=== PATIENT | female | born 1945 | race Caucasian/White ===

== ENCOUNTER 2018-01-06 20:38 | Observation (INO) ==
[2018-01-06] MEDS ORDERED: 0.9 % Sodium Chloride 1,000 ML IVC ONE (21:10)
[2018-01-06] MEDS ORDERED: Ondansetron ODT 4 MG TAB.RAPDIS SL ONE (21:18)
[2018-01-06] MEDS ORDERED: Ondansetron 4 MG/2 ML VIAL IVP ONE (21:18)
--- NOTE | 2018-01-06 21:20 | Emergency Department Note ---
Disposition Clinical Impression: Colitis without complication Leukocytosis Qualifiers: Leukocytosis type: unspecified Qualified Code(s): D72.829 - Elevated white blood cell count, unspecified Disposition: Admitted As Inpatient Condition: Undetermined Time of Disposition: 02:00 (Dr Mo accepted the patient) Nausea/Vomiting/Diarrhea HPI - General Chief complaint: ED Nausea/Vomiting/Diarrhea Stated complaint: Nausea/vomiting/diarrhea Source: patient Limitations: no limitations - History of Present Illness HPI Narrative: Patient is a pleasant 72-year-old female with past medical history significant for HTN, GERD, Dyslipidemia and COPD who is presenting to [facility] with a chief complaint off nausea, dry heaves, abdominal pain and bloody stool. His symptoms started 2 days ago and she is supposed to follow up with frame table operator regarding her rectal bleeding. He stated that she had colonoscopy a few years ago and they found polyps. Patient denies any sick contacts and denies any recent travel. Patient's abdominal pain is basically discomfort and related to the dry heaves and is mainly in the epigastric region patient denies recent ingestion of alcohol, and NSAIDS or any other diet. Patient denies any fever or chills. Pt also denies any eye pain or visual disturbances. There is no sore throat or facial or nasal congestion. There is no chest pain or racing heart. No shortness of breath or cough. No dysuria or flank pain. There is no muskulo-skeletal pain, arthralgia or back pain. Patient also denies rash or pruritus. There is no neurological manifestations, no headache, no vertigo or weakness. The patient also denies any depression, hallucinations and there are no homicidal or suicidal ideations. There is no polyuria or polydipsia. There is no easy bruising or bleeding. Review of other systems is otherwise negative except above. Pt Subjective Complaint: vomiting, diarrhea, abdominal pain Onset (ago): day(s) Description of emesis: food contents Description of Diarrhea: water, blood-streaked Associated Abdominal Pain: Yes If pain, Location of pain: diffuse, epigastric Radiation: other Severity: moderate - Related Data Home Medications Medication Instructions Recorded Confirmed Aspirin [Adult Low Dose Aspirin EC] 81 mg PO DAILY 10/09/15 01/07/18 Gabapentin [Gralise] 600 mg PO HS 10/09/15 01/07/18 Lisinopril [Zestril] 10 mg PO DAILY 10/09/15 01/07/18 Lovastatin [Altoprev] 40 mg PO HS 10/09/15 01/07/18 Montelukast [Singulair] 10 mg PO DAILY 10/09/15 01/07/18 Tizanidine HCl [Zanaflex] 4 mg PO BID PRN 10/09/15 01/07/18 Albuterol Neb [Proventil Neb] 2.5 mg IH TID PRN 12/04/15 01/07/18 Fluticasone Propionate Nasal 100 mcg NS DAILY 12/04/15 01/07/18 [Flonase] Ipratropium Neb [Atrovent Neb] 0.5 mg IH BID PRN 12/04/15 11/25/17 Tramadol HCl 50 mg PO BID PRN 12/04/15 01/07/18 Roflumilast [Daliresp] 500 mcg PO DAILY 06/10/16 11/25/17 Olopatadine HCl [Pataday] 1 drop BOTH EYES DAILY PRN 06/28/17 11/25/17 Omeprazole [PriLOSEC] 40 mg PO DAILY 06/28/17 01/07/18 Ranolazine [Ranexa] 500 mg PO BID 11/24/17 11/25/17 Albuterol Sulfate [Ventolin Hfa] 2 puff IH Q6H PRN 11/25/17 01/07/18 Umeclidinium Brm/Vilanterol Tr 1 puff IH DAILY 11/25/17 11/25/17 [Anoro Ellipta 62.5-25 Mcg INH] Isosorbide MONOnitrate (24 HR) 30 mg PO DAILY 01/07/18 01/07/18 [Imdur] Previous Rx's Medication Instructions Recorded Cefdinir [Omnicef] 300 mg PO BID #8 capsule 11/30/17 Lactobacillus [Culturelle] 2 each PO DAILY #10 cap.sprink 11/30/17 Allergies Allergy/AdvReac Type Severity Reaction Status Date / Time Cyclobenzaprine Allergy Hives Verified 11/06/17 14:11 [From Flexeril] lorazepam [From Ativan] Allergy Hives Verified 11/06/17 14:11 levofloxacin [From Levaquin] AdvReac Itching Verified 11/06/17 14:11 All systems ED: reviewed and negative except as stated. Review of Systems: As Per HPI Constitutional: Denies: fever, chills Eyes: Denies: eye pain, eye discharge ENT ED: Denies: ear pain, throat pain Cardiovascular: Denies: chest pain Respiratory: Denies: cough, dyspnea Gastrointestinal: Reports: abdominal pain, nausea, diarrhea Past Medical History - Past Medical History Medical history: Reports: COPD, GERD, hyperlipidemia, hypertension, myocardial infarction Surgical history: Reports: cataract, hysterectomy, orthopedic, other, other Psychiatric history: Reports: no psych history - Social History Smoking Status: Current every day smoker Smokeless Tobacco Status: No Alcohol use: Reports: none Drug use: Reports: none Physical Exam - General Limitations: no limitations General appearance: alert - Head Head exam: atraumatic, normocephalic, normal inspection - Eye Eye exam: Present: normal appearance, PERRL, EOMI - Expanded Eye Exam Pupils: Left: reactive - ENT ENT exam: normal exam, normal oropharynx, mucous membranes dry - Expanded ENT Exam External ear exam: Present: normal external inspection Mouth exam: Present: normal external inspection Teeth exam: Present: normal inspection Throat exam: Present: normal inspection - Neck Neck exam: Present: normal inspection, full ROM, trachea midline - Chest Chest inspection: Present: normal inspection, symmetric chest wall rise - Respiratory Respiratory exam: Present: normal lung sounds bilaterally - Cardiovascular Cardiovascular exam: Present: regular rate, normal rhythm, normal heart sounds - Abdominal Exam Abdominal exam: Present: soft, Non-Tender, tenderness. Absent: distention, guarding, rebound, rigidity - Extremities Exam Extremities exam: Present: normal inspection, full ROM. Absent: tenderness, pedal edema - Expanded Upper Extremity Exam Shoulder exam: Present: normal inspection, full ROM Arm exam: Present: normal inspection, full ROM Elbow exam: Present: normal inspection, full ROM Forearm/Wrist exam: Present: normal inspection, full ROM Hand exam: Present: normal inspection, full ROM Vascular exam: Normal: capillary refill, radial pulse - Expanded Lower Extremity Exam Hip/Pelvis exam: Present: normal inspection, full ROM Upper leg exam: Present: normal inspection, full ROM Knee exam: Present: normal inspection, full ROM Lower leg exam: Present: normal inspection, full ROM Ankle exam: Present: normal inspection, full ROM Foot/toe exam: Present: normal inspection, full ROM Neurovascular/Tendon exam: Absent: motor deficit, sensory deficit, tendon deficit - Back Exam Back exam: Present: normal inspection, full ROM. Absent: tenderness - Neurological Exam Neurological exam: Present: alert, oriented X3 - Expanded Neurological Exam Patient oriented to: Present: person, place, time Coma Scale Eye Opening: Spontaneous Coma Scale Motor Response: Obeys Commands Coma Scale Verbal Response: Oriented Coma Scale Total: 15 - Psychiatric Psychiatric exam: Present: normal affect, normal mood - Skin Skin exam: Present: warm, dry, intact, normal color Course Course Narrative: Stat IV fluids Stat Cipro and Flagyl Zofran has given patient was challenged Vital Signs Temperature 98.3 F 01/06/18 20:40 Pulse Rate 80 01/06/18 20:40 Respiratory Rate 17 01/06/18 20:40 Blood Pressure 137/73 01/06/18 20:40 O2 Sat by Pulse Oximetry 94 01/06/18 20:40 Temperature 98.3 F 01/06/18 20:40 Pulse Rate 72 01/07/18 02:00 Respiratory Rate 18 01/07/18 02:00 Blood Pressure 160/71 01/07/18 02:00 O2 Sat by Pulse Oximetry 96 01/07/18 02:00 Oxygen Delivery Oxygen Delivery Room Air Nausea/Vomiting/Diarrhea - Differential Diagnosis Likely: traveler's diarrhea, food poisoning, gastroenteritis, clostridium difficile infection, drug-induced nausea and vomitting, dehydration - Medical Records Medical records reviewed: Yes I reviewed the patient's medical records. - Lab Data Lab results reviewed: Yes I reviewed the patient's lab results. Result diagrams: 01/06/18 22:19 01/06/18 22:19 Lab Results 01/06/18 01/06/18 01/06/18 Range/Units 22:19 22:19 22:21 WBC 18.5 H (4.3-11.1) K/mcL RBC 4.61 (3.82-4.97) M/mcL Hgb 13.6 (11.5-15.4) g/dL Hct 41.8 (35.3-44.9) % MCV 90.7 (83.0-100.0) fL MCH 29.5 (28.0-33.3) pg MCHC 32.5 (31.6-35.5) g/dL RDW 16.9 H (11.5-14.5) % Plt Count 226 (140-400) K/mcL MPV 11.6 (9.4-12.4) fL Immature Gran % 0.4 (0-4) % Seg Neutrophils % 82.5 % Lymphocytes % 11.1 % Monocytes % 5.5 % Eosinophils % 0.2 % Basophils % 0.3 % Neutrophils # 15.3 H (1.6-8.9) K/mcL Lymphocytes # 2.1 (0.6-4.6) K/mcL Monocytes # 1.0 (0.0-1.3) K/mcL Eosinophils # 0.0 (0.0-0.6) K/mcL Basophils # 0.1 (0.0-0.2) K/mcL Sodium 140 (136-145) mEq/L Potassium 3.5 (3.5-5.1) mEq/L Chloride 106 (98-107) mEq/L Carbon Dioxide 26 (23-29) mEq/L BUN 8 (8-23) mg/dL Creatinine 0.73 (0.60-1.20) mg/dL Est GFR ( Amer) > 60 (> 60) Est GFR (Non-Af Amer) > 60 (> 60) BUN/Creatinine Ratio 11 (6-26) Glucose 117 H (70-105) mg/dL Calculated Osmolality 289 (280-300) Calcium 8.5 L (8.6-10.3) mg/dL Total Bilirubin 0.4 (0.3-1.0) mg/dL AST 11 L (13-39) Units/L ALT 7 (7-52) Units/L Alkaline Phosphatase 72 (34-104) Units/L Serum Total Protein 6.3 L (6.4-8.9) g/dL Albumin 3.5 (3.5-5.7) g/dL Globulin 2.8 (2.4-3.5) g/dL Albumin/Globulin Ratio 1.3 (1.1-2.2) Lipase 6 L (11-82) Units/L Urine Color Yellow (Yellow) Urine Clarity Clear (Clear) Urine pH 5.5 (5.0-8.0) pH Units Ur Specific [place] 1.020 (1.010-1.025) Urine Protein Negative (Neg-Trace) mg/dL Urine Glucose (UA) Normal (Normal) mg/dL Urine Ketones 15 H (Negative) mg/dL Urine Blood Small H (Negative) Urine Nitrite Negative (Negative) Urine Bilirubin Negative (Negative) Urine Urobilinogen Normal (Normal) mg/dL Ur Leukocyte Esterase Negative (Negative) Urine Microscopic RBC 3-5 H (0-3) per hpf Urine Microscopic WBC 0-3 (0-3) per hpf Ur Squamous Epith Cells Few (None-Few) per lpf Urine Bacteria Few (None-Few) per hpf Urine Mucus Few (Few) Ur Culture Indicated? NO (NO) - Radiology Data Radiology results reviewed: Yes I reviewed the patient's radiology results.
[2018-01-06] MEDS ORDERED: *HR* Promethazine 25 MG/ML VIAL IVP ONE (21:59)
[2018-01-06 22:25] LABS: Bilirubin,Urine Negative (Negative); Blood,Urine Small (Negative); Clarity,Urine Clear (Clear); Color,Urine Yellow (Yellow); Glucose,Urine (UA) Normal (Normal); Ketones,Urine 15 mg/dL (Negative); Leukocyte Esterase,Urine Negative (Negative); Nitrite,Urine Negative (Negative); PH,Urine 5.5 pH Units (5.0-8.0); Protein,Urine Negative (Neg-Trace); Urobilinogen,Urine Normal (Normal)
[2018-01-06 22:26] LABS: Basophils # 0.1 K/mcL (0.0-0.2); Basophils % 0.3 %; Eosinophils % 0.2 %; Hematocrit 41.8 % (35.3-44.9); Hemoglobin 13.6 g/dL (11.5-15.4); Immature Granulocytes % 0.4 % (0-4); Lymphocytes # 2.1 K/mcL (0.6-4.6); Lymphocytes % 11.1 %; Mean Corpuscular HGB Conc 32.5 g/dL (31.6-35.5); Mean Corpuscular Hemoglobin 29.5 pg (28.0-33.3); Mean Corpuscular Volume 90.7 fL (83.0-100.0); Mean Platelet Volume 11.6 fL (9.4-12.4); Monocytes % 5.5 %; Neutrophils # 15.3 K/mcL (1.6-8.9); Platelet Count 226 K/mcL (140-400); Red Blood Count 4.61 M/mcL (3.82-4.97); Red Cell Distribution Width 16.9 % (11.5-14.5); Segmented Neutrophils % 82.5 %
[2018-01-06 22:41] LABS: Alanine Aminotransferase 7 Units/L (7-52); Albumin 3.5 g/dL (3.5-5.7); Albumin/Globulin Ratio 1.3 (1.1-2.2); Alkaline Phosphatase 72 Units/L (34-104); Aspartate Amino Transferase 11 Units/L (13-39); BUN/Creatinine Ratio 11 (6-26); Bilirubin,Total 0.4 mg/dL (0.3-1.0); Blood Urea Nitrogen 8 mg/dL (8-23); Calcium 8.5 mg/dL (8.6-10.3); Carbon Dioxide 26 mEq/L (23-29); Chloride 106 mEq/L (98-107); Globulin 2.8 g/dL (2.4-3.5); Glucose 117 mg/dL (70-105); Lipase 6 Units/L (11-82); Osmolality,Calculated 289 (280-300); Potassium 3.5 mEq/L (3.5-5.1); Sodium 140 mEq/L (136-145); Total Protein 6.3 g/dL (6.4-8.9); eGFR For African Americans > 60 (> 60); eGFR For Non-African Americans > 60 (> 60)
[2018-01-06 22:50] LABS: Mucus,Urine Few (Few); Squamous Epithelial Cell,Urine Few per lpf (None-Few); WBC,Urine 0-3 per hpf (0-3)
[2018-01-06 22:51] LABS: Bacteria,Urine Few per hpf (None-Few)
[2018-01-06] MEDS ORDERED: Isovue-370 500 ML INFUS..BTL IV ONE (23:45)
[2018-01-07] MEDS ORDERED: MetroNIDAZOLE 500 MG/100 ML 500 MG/100 ML BAG IVPB ONE ×4 (01:48→03:24)
[2018-01-07] MEDS ORDERED: Naloxone 0.4 MG/ML INJ IVP PRN (03:24)
[2018-01-07] MEDS ORDERED: *HR* Promethazine 25 MG/ML VIAL IVP ONE (03:24)
[2018-01-07] MEDS ORDERED: Albuterol 2.5 MG/3 ML NEBULIZER IH PRN (03:24)
[2018-01-07] MEDS ORDERED: traMADol 50 MG TABLET PO PRN (03:24)
[2018-01-07] MEDS ORDERED: Isovue-370 500 ML INFUS..BTL IV ONE (03:24)
[2018-01-07] MEDS ORDERED: 0.9 % Sodium Chloride 1,000 ML IVC SCH (03:24)
[2018-01-07 08:01] LABS: Basophils # 0.1 K/mcL (0.0-0.2); Basophils % 0.4 %; Eosinophils # 0.1 K/mcL (0.0-0.6); Eosinophils % 0.4 %; Hematocrit 36.8 % (35.3-44.9); Hemoglobin 11.8 g/dL (11.5-15.4); Immature Granulocytes % 0.3 % (0-4); Lymphocytes # 2.8 K/mcL (0.6-4.6); Lymphocytes % 23.7 %; Mean Corpuscular HGB Conc 32.1 g/dL (31.6-35.5); Mean Corpuscular Hemoglobin 28.9 pg (28.0-33.3); Mean Corpuscular Volume 90.2 fL (83.0-100.0); Mean Platelet Volume 12.1 fL (9.4-12.4); Monocytes # 0.8 K/mcL (0.0-1.3); Monocytes % 6.8 %; Neutrophils # 8.1 K/mcL (1.6-8.9); Platelet Count 203 K/mcL (140-400); Red Blood Count 4.08 M/mcL (3.82-4.97); Red Cell Distribution Width 16.8 % (11.5-14.5); Segmented Neutrophils % 68.4 %
[2018-01-07 08:18] LABS: BUN/Creatinine Ratio 9 (6-26); Blood Urea Nitrogen 6 mg/dL (8-23); Calcium 8.2 mg/dL (8.6-10.3); Carbon Dioxide 24 mEq/L (23-29); Chloride 111 mEq/L (98-107); Glucose 81 mg/dL (70-105); Osmolality,Calculated 293 (280-300); Potassium 3.2 mEq/L (3.5-5.1); Sodium 143 mEq/L (136-145); eGFR For African Americans > 60 (> 60); eGFR For Non-African Americans > 60 (> 60)
[2018-01-07] MEDS ORDERED: Fluticasone Propionate Nasal 50 MCG/SPRAY BOTTLE NS SCH (09:00)
[2018-01-07] MEDS: Lactobacillus 1 EACH CAP.SPRINK PO SCH (09:36)
[2018-01-07] MEDS: Isosorbide MONOnitrate (24 HR) 60 MG TAB.ER.24H PO SCH (09:36)
[2018-01-07] MEDS: Ranolazine 500 MG TAB.ER.12H PO SCH ×2 (09:36→20:59)
[2018-01-07] MEDS: Aspirin Enteric Coated 81 MG Tablet PO SCH (09:36)
[2018-01-07] MEDS ORDERED: Ipratropium Neb 0.5 MG NEBULIZER IH PRN (10:00)
--- NOTE | 2018-01-07 14:47 | Internal Med History&Physical ---
Date of Encounter: 01/07/18 Time of Encounter: 14:10 Assessment and Plan (1) Colitis without complication Current visit: Yes Status: Acute Etiology not certain. She was hospitalized at [facility] approximately 6 weeks ago with pneumonia. She had diarrhea then with C. difficile test negative. Will order stool studies. (2) Hypokalemia Current visit: Yes Status: Acute Potassium decreased today to 3.2. We will give supplemental potassium and monitor labs. (3) Weight loss Current visit: Yes Status: Acute Unintentional 15 pound weight loss. Will check TSH. Chest CT 11/07/2017 showed no worrisome pathology suggestive of malignancy. (4) Hypertension Current visit: No Status: Chronic Continue lisinopril Qualifiers: Hypertension type: essential hypertension Qualified Code(s): I10 - Essential (primary) hypertension Internal Medicine - H&P: HPI Chief complaint: Vomiting, abdominal pain Admitted From: Emergency Dept Plans for Post Hospital Care: Home History of present illness: Ms. Rios is a 72 year old female who came to emergency room stating she had 3 episodes of vomiting beginning January 05. There was no hematemesis. She reports low-grade fever of approximately 100. There was no visible blood in her stool. When she did not improve she came to emergency room for evaluation. Abdominal /pelvis CT showed inflammation of colon from cecum to proximal descending colon. She was admitted to [facility] floor for ongoing care needs. She reports history of colon polyps requiring polypectomy with most recent colonoscopy December 2015. She denies disorders of her liver or exocrine pancreas. She states she had a "stomach ulcer" many years ago. She uses rare OTC ibuprofen and takes aspirin 81 mg daily. She denies other OTC NSAID use. Past Med Surg Social Fam HX - Past Medical History Medical history: COPD, GERD, hyperlipidemia, hypertension, myocardial infarction , other Additional medical history: Chronic diarrhea Psychiatric history: no psych history - Past Surgical History Surgical History: cataract, hysterectomy, orthopedic, other, other Additional surgical history: Carpal Tunnel and Back surgery - Social History Smoking Status: Current every day smoker Packs per day: 1/2 Smokeless Tobacco Status: No Alcohol use: none Drug use: none Internal Medicine - H&P: Meds Aspirin [Adult Low Dose Aspirin EC] 81 mg PO DAILY 10/09/15 [History] Gabapentin [Gralise] 600 mg PO HS 10/09/15 [History] Lisinopril [Zestril] 10 mg PO DAILY 10/09/15 [History] Lovastatin [Altoprev] 40 mg PO HS 10/09/15 [History] Montelukast [Singulair] 10 mg PO DAILY 10/09/15 [History] Tizanidine HCl [Zanaflex] 4 mg PO BID PRN 10/09/15 [History] Albuterol Neb [Proventil Neb] 2.5 mg IH TID PRN 12/04/15 [History] Fluticasone Propionate Nasal [Flonase] 100 mcg NS DAILY 12/04/15 [History] Tramadol HCl 50 mg PO BID PRN 12/04/15 [History] Roflumilast [Daliresp] 500 mcg PO DAILY 06/10/16 [History] Olopatadine HCl [Pataday] 1 drop BOTH EYES DAILY PRN 06/28/17 [History] Omeprazole [PriLOSEC] 40 mg PO DAILY 06/28/17 [History] Ranolazine [Ranexa] 500 mg PO BID 11/24/17 [History] Albuterol Sulfate [Ventolin Hfa] 2 puff IH Q6H PRN 11/25/17 [History] Umeclidinium Brm/Vilanterol Tr [Anoro Ellipta 62.5-25 Mcg INH] 1 puff IH DAILY 11/25/17 [History] Isosorbide MONOnitrate (24 HR) [Imdur] 30 mg PO DAILY 01/07/18 [History] 3 Allergy/AdvReac Type Severity Reaction Status Date / Time Cyclobenzaprine Allergy Hives Verified 11/06/17 14:11 [From Flexeril] lorazepam [From Ativan] Allergy Hives Verified 11/06/17 14:11 levofloxacin [From Levaquin] AdvReac Itching Verified 11/06/17 14:11 All Systems PM: A 10-system review of systems was performed and is negative for pertinent findings except as documented above in the HPI. Review of systems: Gen.: Her weight has decreased from 75.251 kg on 10/11/2015 to 68.039 kg on admission now. This was unintentional. Cardiovascular: She has history of hypertension and reports an TN in 2014. She had a heart catheter at [facility] 2014 without intervention. She wore a defibrillator vest for approximately 4 months but does not know details. She denies heart failure DVT or pulmonary embolus. Respiratory: She has smoked since age 16 up to one pack per day. She reports PFTs at [facility] 2014. She was told she has COPD and has oxygen at home which she uses only when she feels symptomatic. GI: As per history of present illness : She has had UTIs in the past but denies other kidney or bladder disorders. Neurologic: She denies large distribution strokes or seizures. Endocrine: She has been told she has borderline diabetes. She has a thyroid nodule. She has hyperlipidemia. Hematology/oncology: She denies blood disorders cancers or anemia. Psychiatric: She denies anxiety depression or other mental health issues Musk skeletal: She has DJD but no known gout or osteoporosis. She has had right carpal tunnel surgery and 2 cysts moved from her right wrist. - Constitutional Vitals: Temp Pulse Resp BP Pulse Ox 98.5 F 67 16 123/59 93 01/07/18 11:00 01/07/18 11:00 01/07/18 11:00 01/07/18 11:01/07/18 11:00 Exam: Gen.: She is a well-developed well-nourished female sitting in chair at bedside who appears in no acute distress HEENT: Head is atraumatic and normocephalic. Eyes: EOMI. There is no scleral icterus. Mouth: Mucosa is moist. Neck: Supple and nontender. There is no thyromegaly or adenopathy noted Heart: Regular without murmurs gallops or ectopics Lungs: No wheezes or crackles are heard Abdomen: Bowel sounds are present. The abdomen is nontender to palpation. No masses or guarding are noted. Exam is limited somewhat because she is in a seated position. Extremities: There is no cyanosis edema or clubbing noted. Dorsalis pedis and posttibial pulses are trace palpable bilaterally. Neurologic: Mental status: She is talkative and a good historian. Cranial nerves: Smile is symmetric. Forehead wrinkles bilaterally. Tongue protrudes midline. EOMI. Motor: There is no pronator drift. Cerebellar: Finger to nose is intact bilaterally. Skin: Warm and dry Internal Med - H&P Results - Labs CBC & Chem 7: 01/07/18 07:38 01/07/18 07:38 Labs: Short CBC 01/07/18 Range/Units 07:38 WBC 11.9 H (4.3-11.1) K/mcL Hgb 11.8 D (11.5-15.4) g/dL Hct 36.8 (35.3-44.9) % Plt Count 203 (140-400) K/mcL Neutrophils # 8.1 (1.6-8.9) K/mcL BMP 01/07/18 07:38 Sodium 143 Potassium 3.2 L Chloride 111 H Carbon Dioxide 24 BUN 6 L Creatinine 0.64 Glucose 81 Calcium 8.2 L
[2018-01-07] MEDS ORDERED: metroNIDAZOLE 500 MG TABLET PO SCH (15:15)
[2018-01-07] MEDS: metroNIDAZOLE 500 MG TABLET PO SCH ×2 (16:48→22:04)
[2018-01-07] MEDS ORDERED: Gabapentin 300 MG CAPSULE PO SCH (21:00)
[2018-01-08] MEDS: metroNIDAZOLE 500 MG TABLET PO SCH (05:19)
[2018-01-08 06:28] LABS: Basophils % 0.5 %; Eosinophils # 0.2 K/mcL (0.0-0.6); Eosinophils % 2.1 %; Hematocrit 35.2 % (35.3-44.9); Hemoglobin 11.2 g/dL (11.5-15.4); Immature Granulocytes % 0.4 % (0-4); Lymphocytes # 2.3 K/mcL (0.6-4.6); Mean Corpuscular HGB Conc 31.8 g/dL (31.6-35.5); Mean Corpuscular Hemoglobin 28.9 pg (28.0-33.3); Mean Corpuscular Volume 90.7 fL (83.0-100.0); Mean Platelet Volume 11.6 fL (9.4-12.4); Monocytes # 0.7 K/mcL (0.0-1.3); Platelet Count 176 K/mcL (140-400); Red Blood Count 3.88 M/mcL (3.82-4.97); Red Cell Distribution Width 16.3 % (11.5-14.5)
[2018-01-08 06:54] LABS: BUN/Creatinine Ratio 15 (6-26); Blood Urea Nitrogen 9 mg/dL (8-23); Carbon Dioxide 27 mEq/L (23-29); Chloride 112 mEq/L (98-107); Glucose 84 mg/dL (70-105); Magnesium 1.9 mg/dL (1.6-2.6); Osmolality,Calculated 294 (280-300); Potassium 3.4 mEq/L (3.5-5.1); Sodium 143 mEq/L (136-145); eGFR For African Americans > 60 (> 60); eGFR For Non-African Americans > 60 (> 60)
[2018-01-08 07:03] LABS: Thyroid Stimulating Hormone 1.606 mcIU/mL (0.340-5.600)
[2018-01-08 07:43] VITALS: BP 128/61
[2018-01-08] MEDS: Lactobacillus 1 EACH CAP.SPRINK PO SCH (08:24)
[2018-01-08] MEDS: Isosorbide MONOnitrate (24 HR) 60 MG TAB.ER.24H PO SCH (08:25)
[2018-01-08] MEDS: Ranolazine 500 MG TAB.ER.12H PO SCH (08:25)
[2018-01-08] MEDS: Aspirin Enteric Coated 81 MG Tablet PO SCH (08:25)
--- NOTE | 2018-01-08 10:15 | Discharge Summary ---
Orders not resulted at time of discharge: Pending orders 01/07/18 02:25 Culture,Blood [BC] Stat 01/07/18 02:30 Culture,Blood,Additional [BC] Stat 01/07/18 15:00 GI Panel,Stool [MOLMIC] Routine Date of Encounter: 01/08/18 Time of Encounter: 10:05 - Discharge Diagnosis (1) Colitis without complication Priority: Primary Status: Acute (2) Hypokalemia Priority: Secondary Status: Acute (3) Weight loss Priority: Secondary Status: Acute (4) Hypertension Priority: Secondary Status: Chronic Qualifiers: Hypertension type: essential hypertension Qualified Code(s): I10 - Essential (primary) hypertension Hospital course: Ms. Rios is a 72 year old female who came to emergency room stating she had 3 episodes of vomiting beginning January 05. There was no hematemesis. She reports low-grade fever of approximately 100. There was no visible blood in her stool. When she did not improve she came to emergency room for evaluation. Abdominal /pelvis CT showed inflammation of colon from cecum to proximal descending colon. She was admitted to [facility] for ongoing care needs. Initial orders were written by the emergency room physician. I saw her on January 07 and performed the history and physical. She was started on Cipro and Flagyl with lactobacillus. WBC normalized to 7.3 with resolution of left shift by day of discharge. A GI stool panel was ordered with results pending at time of discharge. Supplemental potassium was given and will be continued for 7 days after discharge. Her PCP can monitor this. TSH returned normal at 1.606. She remained afebrile during her hospital stay. Her oral intake was adequate. She reported stools were still loose on day of discharge but I felt she was stable for discharge home. She will follow with her PCP Dr. Coats within 1 week. She will continue with Flagyl and lactobacillus for 5 additional days at discharge. Her PCP can follow up on the pending GI stool panel. I encouraged her to become a nonsmoker. - Time Spent with Patient Total time spent providing and/or coordinating discharge services: - Discharge Medications Prescriptions: Lactobacillus [Culturelle] 1 each PO BID #10 cap.sprink metroNIDAZOLE [Flagyl] 500 mg PO TID #15 tablet Potassium Chloride 10 meq PO BIDWM #14 tab.er.prt Home Medications: Aspirin [Adult Low Dose Aspirin EC] 81 mg PO DAILY 04/07/16 [History] Gabapentin [Gralise] 600 mg PO HS 10/09/15 [History] Lisinopril [Zestril] 10 mg PO DAILY 10/09/15 [History] Lovastatin [Altoprev] 40 mg PO HS 10/09/15 [History] Montelukast [Singulair] 10 mg PO DAILY 10/09/15 [History] Tizanidine HCl [Zanaflex] 4 mg PO BID PRN 10/09/15 [History] Albuterol Neb [Proventil Neb] 2.5 mg IH TID PRN 12/04/15 [History] Fluticasone Propionate Nasal [Flonase] 100 mcg NS DAILY 12/04/15 [History] Tramadol HCl 50 mg PO BID PRN 12/04/15 [History] Roflumilast [Daliresp] 500 mcg PO DAILY 06/10/16 [History] Olopatadine HCl [Pataday] 1 drop BOTH EYES DAILY PRN 06/28/17 [History] Ranolazine [Ranexa] 500 mg PO BID 11/24/17 [History] Albuterol Sulfate [Ventolin Hfa] 2 puff IH Q6H PRN 11/25/17 [History] Umeclidinium Brm/Vilanterol Tr [Anoro Ellipta 62.5-25 Mcg INH] 1 puff IH DAILY 11/25/17 [History] Isosorbide MONOnitrate (24 HR) [Imdur] 30 mg PO DAILY 01/07/18 [History] Lactobacillus [Culturelle] 1 each PO BID #10 cap.sprink 01/08/18 [Rx] Potassium Chloride 10 meq PO BIDWM #14 tab.er.prt 01/08/18 [Rx] metroNIDAZOLE [Flagyl] 500 mg PO TID #15 tablet 01/08/18 [Rx] Allergies/Adverse Reactions: 3 Allergy/AdvReac Type Severity Reaction Status Date / Time Cyclobenzaprine Allergy Hives Verified 11/06/17 14:11 [From Flexeril] lorazepam [From Ativan] Allergy Hives Verified 11/06/17 14:11 levofloxacin [From Levaquin] AdvReac Itching Verified 11/06/17 14:11 Date of admission: 01/07/18 02:24 Primary care physician: Josh Coats DO - Constitutional Vitals: Temp Pulse Resp BP Pulse Ox 98.2 F 63 18 128/61 94 01/08/18 07:25 01/08/18 07:25 01/08/18 07:25 01/08/18 07:25 01/08/18 07:25 - Patient Status Disposition: Home, Self-Care Condition: Undetermined Overall status at discharge: patient is progressing back to baseline - Discharge Instructions Follow Up With: Josh Coats DO [Primary Care Provider] - 1 week - Diet and Activity Activity: resume usual activities as tolerated, wear oxygen at night Diet: advance to your usual diet
== END 2018-01-08 11:22 | disposition home or self-care (01) ==
LOC: EMEROOPIK 20:38 → INPPIK 20:38
PROVIDERS: ADMIT Internal Medicine; ATTEND Internal Medicine

== ENCOUNTER 2019-07-17 07:21 | Observation (INO) ==
[2019-07-17] MEDS ORDERED: cefTRIAXone 2,000 MG in 0.9 % Sodium Chloride Mini Bag 100 ML IVPB ONE (07:26)
[2019-07-17] MEDS ORDERED: 0.9 % Sodium Chloride 1,000 ML IVC ONE ×2 (07:26→18:50)
[2019-07-17 07:50] LABS: Bilirubin,Urine Negative (Negative); Blood,Urine Small (Negative); Clarity,Urine Turbid (Clear); Color,Urine Yellow (Yellow); Glucose,Urine (UA) Normal (Normal); Ketones,Urine Negative (Negative); Leukocyte Esterase,Urine Large (Negative); Nitrite,Urine Positive (Negative); Protein,Urine Negative (Neg-Trace); Specific Gravity,Urine 1.015 (1.010-1.025); Urobilinogen,Urine Normal (Normal)
[2019-07-17 07:58] LABS: Basophils # 0.1 K/mcL (0.0-0.2); Basophils % 0.5 %; Eosinophils # 0.1 K/mcL (0.0-0.6); Eosinophils % 0.9 %; Hematocrit 41.1 % (35.3-44.9); Hemoglobin 12.8 g/dL (11.5-15.4); Immature Granulocytes % 0.4 % (0-4); Lymphocytes % 12.9 %; Mean Corpuscular HGB Conc 31.1 g/dL (31.6-35.5); Mean Corpuscular Hemoglobin 28.1 pg (28.0-33.3); Mean Corpuscular Volume 90.1 fL (83.0-100.0); Mean Platelet Volume 11.6 fL (9.4-12.4); Monocytes # 0.8 K/mcL (0.0-1.3); Monocytes % 5.1 %; Neutrophils # 12.3 K/mcL (1.6-8.9); Platelet Count 286 K/mcL (140-400); Red Blood Count 4.56 M/mcL (3.82-4.97); Red Cell Distribution Width 15.6 % (11.5-14.5); Segmented Neutrophils % 80.2 %; White Blood Count 15.3 K/mcL (4.3-11.1)
[2019-07-17 08:01] LABS: Bacteria,Urine Many per hpf (None-Few); Squamous Epithelial Cell,Urine Few per lpf (None-Few); WBC,Urine TNTC per hpf (0-3)
[2019-07-17 08:02] LABS: Mucus,Urine Moderate per lpf (Few)
[2019-07-17 08:11] LABS: BUN/Creatinine Ratio 15 (6-26); Blood Urea Nitrogen 12 mg/dL (8-23); Calcium 8.2 mg/dL (8.6-10.3); Carbon Dioxide 28 mEq/L (23-29); Chloride 106 mEq/L (98-107); Glucose 111 mg/dL (70-105); Osmolality,Calculated 292 (280-300); Potassium 3.8 mEq/L (3.5-5.1); Sodium 141 mEq/L (136-145); eGFR For African Americans > 60 (> 60); eGFR For Non-African Americans > 60 (> 60)
[2019-07-17] MEDS ORDERED: Naloxone 0.4 MG/ML INJ IVP PRN (09:10)
[2019-07-17] MEDS ORDERED: Ondansetron 4 MG/2 ML VIAL IVP PRN (09:10)
[2019-07-17] MEDS ORDERED: Ringers Solution, Lactated 1,000 ML IVC SCH (09:15)
[2019-07-17] MEDS ORDERED: *HR* OxyCODONE/APAP 5/325 TABLET PO ONE (09:20)
[2019-07-17] MEDS ORDERED: Olopatadine Hcl [Pataday] OP PRN (15:44)
[2019-07-17] MEDS ORDERED: Furosemide 20 MG TABLET PO PRN (15:44)
[2019-07-17] MEDS ORDERED: tiZANidine 4 MG TABLET PO PRN (15:44)
[2019-07-17] MEDS ORDERED: NON-FORMULARY MEDICATION 1 EACH EACH (Ibandronate Sodium [Boniva] 150 MG) PO SCH (15:45)
[2019-07-17] MEDS: *HR* OxyCODONE Immed Rel 5 MG TABLET PO PRN (16:45)
[2019-07-17] MEDS: Nicotine 21 MG PATCH.TD24 TD SCH (16:46)
[2019-07-17] MEDS ORDERED: Acetaminophen 325 MG TABLET PO PRN (18:49)
[2019-07-17] MEDS: 0.9 % Sodium Chloride 1,000 ML IVC SCH (19:18)
[2019-07-17] MEDS: Gabapentin 300 MG CAPSULE PO SCH (20:20)
[2019-07-18] MEDS: 0.9 % Sodium Chloride 1,000 ML IVC SCH ×2 (04:48→14:55)
[2019-07-18 05:26] LABS: Hematocrit 38.2 % (35.3-44.9); Hemoglobin 11.9 g/dL (11.5-15.4); Mean Corpuscular HGB Conc 31.2 g/dL (31.6-35.5); Mean Corpuscular Hemoglobin 28.3 pg (28.0-33.3); Mean Platelet Volume 11.4 fL (9.4-12.4); Platelet Count 272 K/mcL (140-400); Red Cell Distribution Width 15.8 % (11.5-14.5); White Blood Count 11.9 K/mcL (4.3-11.1)
[2019-07-18 05:46] LABS: BUN/Creatinine Ratio 15 (6-26); Blood Urea Nitrogen 9 mg/dL (8-23); Calcium 7.8 mg/dL (8.6-10.3); Carbon Dioxide 27 mEq/L (23-29); Chloride 113 mEq/L (98-107); Glucose 92 mg/dL (70-105); Osmolality,Calculated 298 (280-300); Potassium 3.8 mEq/L (3.5-5.1); Sodium 145 mEq/L (136-145); eGFR For African Americans > 60 (> 60); eGFR For Non-African Americans > 60 (> 60)
[2019-07-18] MEDS: cefTRIAXone 2,000 MG in Water for inj. (sterile) 20 ML IVP SCH (08:05)
[2019-07-18] MEDS: Aspirin Enteric Coated 81 MG Tablet PO SCH (08:06)
[2019-07-18] MEDS: Metoprolol XL (24 HR) Succ 25 MG TAB.ER.24H PO SCH (08:06)
[2019-07-18] MEDS: Isosorbide MONOnitrate (24 HR) 30 MG TAB.ER.24H PO SCH (08:06)
[2019-07-18] MEDS: Roflumilast [Daliresp] 500 MCG PO SCH (08:06)
[2019-07-18] MEDS: Cholecalciferol (D-3) 1,000 UNIT (25MCG) TABLET PO SCH (08:06)
[2019-07-18] MEDS: Fluticasone Propionate Nasal 50 MCG/SPRAY BOTTLE NS SCH (08:06)
[2019-07-18] MEDS: Gabapentin 300 MG CAPSULE PO SCH ×3 (08:06→20:17)
[2019-07-18] MEDS: Nicotine 21 MG PATCH.TD24 TD SCH (09:05)
[2019-07-18] MEDS: *HR* OxyCODONE Immed Rel 5 MG TABLET PO PRN (14:59)
[2019-07-19] MEDS: 0.9 % Sodium Chloride 1,000 ML IVC SCH (01:02)
[2019-07-19 06:35] LABS: Hematocrit 37.9 % (35.3-44.9); Hemoglobin 11.4 g/dL (11.5-15.4); Mean Corpuscular HGB Conc 30.1 g/dL (31.6-35.5); Mean Corpuscular Hemoglobin 28.2 pg (28.0-33.3); Mean Corpuscular Volume 93.8 fL (83.0-100.0); Mean Platelet Volume 12.9 fL (9.4-12.4); Platelet Count 156 K/mcL (140-400); Red Blood Count 4.04 M/mcL (3.82-4.97); Red Cell Distribution Width 15.9 % (11.5-14.5); White Blood Count 7.9 K/mcL (4.3-11.1)
[2019-07-19 06:54] LABS: BUN/Creatinine Ratio 20 (6-26); Blood Urea Nitrogen 10 mg/dL (8-23); Calcium 7.8 mg/dL (8.6-10.3); Carbon Dioxide 22 mEq/L (23-29); Chloride 113 mEq/L (98-107); Glucose 89 mg/dL (70-105); Osmolality,Calculated 293 (280-300); Sodium 142 mEq/L (136-145); eGFR For African Americans > 60 (> 60); eGFR For Non-African Americans > 60 (> 60)
[2019-07-19] MEDS: Roflumilast [Daliresp] 500 MCG PO SCH (09:07)
[2019-07-19] MEDS: cefTRIAXone 2,000 MG in Water for inj. (sterile) 20 ML IVP SCH (09:33)
[2019-07-19] MEDS: Metoprolol XL (24 HR) Succ 25 MG TAB.ER.24H PO SCH (09:34)
[2019-07-19] MEDS: Aspirin Enteric Coated 81 MG Tablet PO SCH (09:34)
[2019-07-19] MEDS: Gabapentin 300 MG CAPSULE PO SCH (09:35)
[2019-07-19] MEDS: Isosorbide MONOnitrate (24 HR) 30 MG TAB.ER.24H PO SCH (09:35)
[2019-07-19] MEDS: Nicotine 21 MG PATCH.TD24 TD SCH ×2 (09:35→09:56)
[2019-07-19] MEDS: Cholecalciferol (D-3) 1,000 UNIT (25MCG) TABLET PO SCH (09:35)
[2019-07-19] MEDS: Fluticasone Propionate Nasal 50 MCG/SPRAY BOTTLE NS SCH (09:36)
[2019-07-19 10:39] VITALS: BP 168/85
== END 2019-07-19 11:14 | disposition home or self-care (01) ==
LOC: EMEROOPIK 07:21 → INPPIK 07:21
PROVIDERS: ADMIT Internal Medicine; ATTEND Internal Medicine

== ENCOUNTER 2019-12-28 20:34 | Inpatient (IN) ==
[2019-12-28] MEDS ORDERED: Ipratropium/Albuterol Neb 3 ML IH ONE (21:50)
[2019-12-28] MEDS ORDERED: methylPREDNISolone 125 MG/2 ML VIAL IVP ONE (21:50)
[2019-12-28 22:11] LABS: Basophils # 0.1 K/mcL (0.0-0.2); Basophils % 0.3 %; Eosinophils # 0.7 K/mcL (0.0-0.6); Eosinophils % 3.9 %; Hematocrit 37.7 % (35.3-44.9); Hemoglobin 11.8 g/dL (11.5-15.4); Immature Granulocytes % 0.5 % (0-4); Lymphocytes # 2.3 K/mcL (0.6-4.6); Mean Corpuscular HGB Conc 31.3 g/dL (31.6-35.5); Mean Corpuscular Hemoglobin 27.8 pg (28.0-33.3); Mean Corpuscular Volume 88.7 fL (83.0-100.0); Mean Platelet Volume 11.6 fL (9.4-12.4); Monocytes # 1.2 K/mcL (0.0-1.3); Monocytes % 6.8 %; Neutrophils # 13.4 K/mcL (1.6-8.9); Platelet Count 212 K/mcL (140-400); Red Blood Count 4.25 M/mcL (3.82-4.97); Red Cell Distribution Width 17.8 % (11.5-14.5); Segmented Neutrophils % 75.5 %; White Blood Count 17.7 K/mcL (4.3-11.1)
[2019-12-28 22:28] LABS: BUN/Creatinine Ratio 15 (6-26); Blood Urea Nitrogen 12 mg/dL (8-23); Calcium 8.1 mg/dL (8.6-10.3); Carbon Dioxide 30 mEq/L (23-29); Chloride 105 mEq/L (98-107); Glucose 119 mg/dL (70-105); Osmolality,Calculated 295 (280-300); Potassium 3.9 mEq/L (3.5-5.1); Sodium 142 mEq/L (136-145); Troponin I < 0.03 ng/mL (< 0.04); eGFR For African Americans > 60 (> 60); eGFR For Non-African Americans > 60 (> 60)
[2019-12-29] MEDS ORDERED: cefTRIAXone 1,000 MG in 0.9 % Sodium Chloride Mini Bag 100 ML IVPB ONE (01:54)
[2019-12-29] MEDS ORDERED: Azithromycin 250 MG TABLET PO ONE (01:54)
[2019-12-29] MEDS: Ipratropium/Albuterol Neb 3 ML IH SCH ×4 (07:06→21:48)
[2019-12-29] MEDS ORDERED: Naloxone 0.4 MG/ML INJ IVP PRN (07:26)
[2019-12-29] MEDS: *HR* Heparin 5,000 UNIT/ML VIAL SQ SCH ×3 (08:07→22:12)
[2019-12-29 08:41] LABS: Basophils % 0.3 %; Eosinophils % 0.1 %; Hemoglobin 12.8 g/dL (11.5-15.4); Immature Granulocytes % 0.8 % (0-4); Lymphocytes % 6.8 %; Mean Corpuscular HGB Conc 31.2 g/dL (31.6-35.5); Mean Corpuscular Hemoglobin 27.8 pg (28.0-33.3); Mean Corpuscular Volume 88.9 fL (83.0-100.0); Mean Platelet Volume 11.1 fL (9.4-12.4); Monocytes # 0.1 K/mcL (0.0-1.3); Monocytes % 0.9 %; Neutrophils # 13.6 K/mcL (1.6-8.9); Platelet Count 225 K/mcL (140-400); Red Blood Count 4.61 M/mcL (3.82-4.97); Red Cell Distribution Width 17.8 % (11.5-14.5); Segmented Neutrophils % 91.1 %; White Blood Count 14.9 K/mcL (4.3-11.1)
[2019-12-29 08:58] LABS: Alanine Aminotransferase 18 Units/L (7-52); Albumin 3.4 g/dL (3.5-5.7); Albumin/Globulin Ratio 1.3 (1.1-2.2); Alkaline Phosphatase 68 Units/L (34-104); Aspartate Amino Transferase 11 Units/L (13-39); BUN/Creatinine Ratio 19 (6-26); Bilirubin,Total 0.4 mg/dL (0.3-1.0); Blood Urea Nitrogen 13 mg/dL (8-23); Calcium 8.3 mg/dL (8.6-10.3); Carbon Dioxide 27 mEq/L (23-29); Chloride 106 mEq/L (98-107); Globulin 2.6 g/dL (2.4-3.5); Glucose 194 mg/dL (70-105); Osmolality,Calculated 299 (280-300); Potassium 4.2 mEq/L (3.5-5.1); Sodium 142 mEq/L (136-145); eGFR For African Americans > 60 (> 60); eGFR For Non-African Americans > 60 (> 60)
[2019-12-29] MEDS ORDERED: Nitroglycerin 0.4 MG TAB.SUBL SL PRN (10:02)
[2019-12-29] MEDS ORDERED: Furosemide 20 MG TABLET PO PRN (10:02)
[2019-12-29] MEDS ORDERED: tiZANidine 4 MG TABLET PO PRN (10:02)
[2019-12-29] MEDS ORDERED: NON-FORMULARY MEDICATION 1 EACH EACH (Ibandronate Sodium [Boniva] 150 MG) PO SCH (10:15)
[2019-12-29] MEDS: *HR* OxyCODONE Immed Rel 5 MG TABLET PO PRN (10:25)
[2019-12-29] MEDS: Gabapentin 300 MG CAPSULE PO SCH ×3 (10:25→19:38)
[2019-12-29] MEDS: Isosorbide MONOnitrate (24 HR) 30 MG TAB.ER.24H PO SCH (10:26)
[2019-12-29] MEDS: Aspirin Enteric Coated 81 MG Tablet PO SCH (10:26)
[2019-12-29] MEDS: Metoprolol XL (24 HR) Succ 25 MG TAB.ER.24H PO SCH (10:26)
[2019-12-29] MEDS: Cholecalciferol (D-3) 1,000 UNIT (25MCG) TABLET PO SCH (10:26)
[2019-12-29] MEDS: 0.9 % Sodium Chloride 1,000 ML IVC SCH ×2 (10:27→19:38)
[2019-12-29] MEDS: Fluticasone Propionate Nasal 50 MCG/SPRAY BOTTLE NS SCH (10:27)
[2019-12-30] MEDS: Azithromycin 500 MG in 0.9 % Sodium Chloride 250 ML IVPB SCH (03:25)
[2019-12-30] MEDS: 0.9 % Sodium Chloride 1,000 ML IVC SCH ×2 (03:25→12:32)
[2019-12-30] MEDS: Ipratropium/Albuterol Neb 3 ML IH SCH ×4 (04:00→22:41)
[2019-12-30] MEDS: *HR* Heparin 5,000 UNIT/ML VIAL SQ SCH ×3 (06:11→21:08)
[2019-12-30 07:43] LABS: Basophils % 0.3 %; Eosinophils # 0.6 K/mcL (0.0-0.6); Eosinophils % 4.1 %; Hematocrit 36.2 % (35.3-44.9); Hemoglobin 10.9 g/dL (11.5-15.4); Immature Granulocytes % 0.7 % (0-4); Lymphocytes # 3.3 K/mcL (0.6-4.6); Lymphocytes % 22.5 %; Mean Corpuscular HGB Conc 30.1 g/dL (31.6-35.5); Mean Corpuscular Hemoglobin 27.5 pg (28.0-33.3); Mean Corpuscular Volume 91.2 fL (83.0-100.0); Mean Platelet Volume 11.7 fL (9.4-12.4); Monocytes # 0.8 K/mcL (0.0-1.3); Monocytes % 5.6 %; Neutrophils # 9.9 K/mcL (1.6-8.9); Platelet Count 204 K/mcL (140-400); Red Blood Count 3.97 M/mcL (3.82-4.97); Segmented Neutrophils % 66.8 %; White Blood Count 14.8 K/mcL (4.3-11.1)
[2019-12-30 08:02] LABS: BUN/Creatinine Ratio 25 (6-26); Blood Urea Nitrogen 17 mg/dL (8-23); Calcium 7.7 mg/dL (8.6-10.3); Carbon Dioxide 26 mEq/L (23-29); Chloride 113 mEq/L (98-107); Glucose 96 mg/dL (70-105); Osmolality,Calculated 301 (280-300); Potassium 3.9 mEq/L (3.5-5.1); Sodium 145 mEq/L (136-145); eGFR For African Americans > 60 (> 60); eGFR For Non-African Americans > 60 (> 60)
[2019-12-30] MEDS: Metoprolol XL (24 HR) Succ 25 MG TAB.ER.24H PO SCH (08:45)
[2019-12-30] MEDS: Gabapentin 300 MG CAPSULE PO SCH ×3 (08:45→21:08)
[2019-12-30] MEDS: Cholecalciferol (D-3) 1,000 UNIT (25MCG) TABLET PO SCH (08:45)
[2019-12-30] MEDS: Aspirin Enteric Coated 81 MG Tablet PO SCH (08:45)
[2019-12-30] MEDS: Isosorbide MONOnitrate (24 HR) 30 MG TAB.ER.24H PO SCH (08:45)
[2019-12-30] MEDS: *HR* OxyCODONE Immed Rel 5 MG TABLET PO PRN (08:51)
[2019-12-30] MEDS: Fluticasone Propionate Nasal 50 MCG/SPRAY BOTTLE NS SCH (08:51)
[2019-12-31] MEDS: 0.9 % Sodium Chloride 1,000 ML IVC SCH ×3 (01:17→10:52)
[2019-12-31] MEDS: Azithromycin 500 MG in 0.9 % Sodium Chloride 250 ML IVPB SCH (02:33)
[2019-12-31] MEDS: Ipratropium/Albuterol Neb 3 ML IH SCH ×2 (03:50→11:26)
[2019-12-31] MEDS: *HR* Heparin 5,000 UNIT/ML VIAL SQ SCH (06:44)
[2019-12-31] MEDS ORDERED: Acetaminophen 325 MG TABLET PO PRN (07:12)
[2019-12-31 07:22] VITALS: BP 171/95
[2019-12-31 07:29] LABS: Basophils # 0.1 K/mcL (0.0-0.2); Basophils % 0.5 %; Eosinophils # 0.7 K/mcL (0.0-0.6); Eosinophils % 6.2 %; Hematocrit 36.6 % (35.3-44.9); Hemoglobin 11.1 g/dL (11.5-15.4); Immature Granulocytes % 0.8 % (0-4); Lymphocytes % 26.6 %; Mean Corpuscular HGB Conc 30.3 g/dL (31.6-35.5); Mean Corpuscular Hemoglobin 27.8 pg (28.0-33.3); Mean Corpuscular Volume 91.5 fL (83.0-100.0); Monocytes # 0.7 K/mcL (0.0-1.3); Monocytes % 6.4 %; Neutrophils # 6.7 K/mcL (1.6-8.9); Platelet Count 218 K/mcL (140-400); Red Cell Distribution Width 18.4 % (11.5-14.5); Segmented Neutrophils % 59.5 %; White Blood Count 11.2 K/mcL (4.3-11.1)
[2019-12-31 07:45] LABS: BUN/Creatinine Ratio 23 (6-26); Blood Urea Nitrogen 16 mg/dL (8-23); Calcium 7.9 mg/dL (8.6-10.3); Carbon Dioxide 27 mEq/L (23-29); Chloride 113 mEq/L (98-107); Glucose 85 mg/dL (70-105); Osmolality,Calculated 306 (280-300); Potassium 4.2 mEq/L (3.5-5.1); Sodium 148 mEq/L (136-145); eGFR For African Americans > 60 (> 60); eGFR For Non-African Americans > 60 (> 60)
[2019-12-31] MEDS: Gabapentin 300 MG CAPSULE PO SCH (08:09)
[2019-12-31] MEDS: Aspirin Enteric Coated 81 MG Tablet PO SCH (08:09)
[2019-12-31] MEDS: Isosorbide MONOnitrate (24 HR) 30 MG TAB.ER.24H PO SCH (08:09)
[2019-12-31] MEDS: Cholecalciferol (D-3) 1,000 UNIT (25MCG) TABLET PO SCH (08:09)
[2019-12-31] MEDS: *HR* OxyCODONE Immed Rel 5 MG TABLET PO PRN (08:09)
[2019-12-31] MEDS: Metoprolol XL (24 HR) Succ 25 MG TAB.ER.24H PO SCH (08:09)
[2019-12-31] MEDS: Fluticasone Propionate Nasal 50 MCG/SPRAY BOTTLE NS SCH (08:12)
== END 2019-12-31 14:35 | disposition home or self-care (01) | DRG 193 ==
LOC: EMEROOPIK 20:34 → INPPIK 20:34
PROVIDERS: ADMIT Family Medicine; ATTEND Family Medicine

== ENCOUNTER 2021-10-12 13:53 | Observation (INO) ==
[2021-10-12] MEDS ORDERED: 0.9 % Sodium Chloride 1,000 ML IVC ONE (14:04)
[2021-10-12] MEDS ORDERED: Ondansetron 4 MG/2 ML VIAL IVP ONE (14:04)
[2021-10-12] MEDS ORDERED: cefTRIAXone 2,000 MG in 0.9 % Sodium Chloride Mini Bag 100 ML IVPB ONE (14:05)
[2021-10-12 14:29] LABS: Basophils # 0.1 K/mcL (0.0-0.2); Basophils % 0.3 %; Hematocrit 38.2 % (35.3-44.9); Hemoglobin 12.1 g/dL (11.5-15.4); Lymphocytes % 2.6 %; Mean Corpuscular HGB Conc 31.7 g/dL (31.6-35.5); Mean Corpuscular Hemoglobin 27.8 pg (28.0-33.3); Mean Corpuscular Volume 87.8 fL (83.0-100.0); Mean Platelet Volume 9.8 fL (9.4-12.4); Monocytes # 1.3 K/mcL (0.0-1.3); Monocytes % 3.7 %; Platelet Count 448 K/mcL (140-400); Red Blood Count 4.35 M/mcL (3.82-4.97); Red Cell Distribution Width 15.7 % (11.5-14.5); Segmented Neutrophils % 92.4 %
[2021-10-12 14:36] LABS: Lymphocytes # 0.9 K/mcL (0.6-4.6); Neutrophils # 33.2 K/mcL (1.6-8.9); White Blood Count 35.9 K/mcL (4.3-11.1)
[2021-10-12 14:50] LABS: Alanine Aminotransferase 8 Units/L (7-52); Albumin 3.3 g/dL (3.5-5.7); Alkaline Phosphatase 78 Units/L (34-104); Aspartate Amino Transferase 10 Units/L (13-39); BUN/Creatinine Ratio 13 (6-26); Bilirubin,Total 0.6 mg/dL (0.3-1.0); Blood Urea Nitrogen 8 mg/dL (8-23); Calcium 8.3 mg/dL (8.6-10.3); Carbon Dioxide 26 mEq/L (23-29); Chloride 102 mEq/L (98-107); Globulin 3.3 g/dL (2.4-3.5); Glucose 149 mg/dL (70-105); Magnesium 1.6 mg/dL (1.6-2.6); Osmolality,Calculated 283 (280-300); Potassium 3.9 mEq/L (3.5-5.1); Sodium 136 mEq/L (136-145); Total Protein 6.6 g/dL (6.4-8.9); eGFR For African Americans > 60 (> 60); eGFR For Non-African Americans > 60 (> 60)
[2021-10-12 15:15] LABS: Platelet Estimate Increased (Normal)
[2021-10-12] MEDS ORDERED: Naloxone 0.4 MG/ML INJ IVP PRN ×2 (16:14→19:27)
[2021-10-12] MEDS ORDERED: NON-FORMULARY MEDICATION 1 EACH EACH (Ibandronate Sodium [Boniva] 150 MG Tablet) PO SCH (16:15)
[2021-10-12] MEDS: *HR* OxyCODONE Immed Rel 5 MG TABLET PO PRN (19:00)
[2021-10-12] MEDS: Gabapentin 300 MG CAPSULE PO SCH (20:38)
[2021-10-12] MEDS: 0.9 % Sodium Chloride 1,000 ML IVC SCH (20:39)
[2021-10-13] MEDS: Piperacillin/Tazobactam 3.375 GM in 0.9 % Sodium Chloride Mini Bag 100 ML IVPB SCH ×3 (00:54→16:11)
[2021-10-13] MEDS: tiZANidine 4 MG TABLET PO PRN ×2 (01:08→16:14)
[2021-10-13] MEDS: 0.9 % Sodium Chloride 1,000 ML IVC SCH (03:57)
[2021-10-13] MEDS ORDERED: *HR* Enoxaparin 40 MG/0.4 ML SYRINGE SQ SCH (06:00)
[2021-10-13 07:17] LABS: Basophils # 0.1 K/mcL (0.0-0.2); Basophils % 0.3 %; Eosinophils # 0.1 K/mcL (0.0-0.6); Eosinophils % 0.2 %; Hematocrit 33.1 % (35.3-44.9); Hemoglobin 9.9 g/dL (11.5-15.4); Immature Granulocytes % 1.1 % (0-4); Lymphocytes % 4.3 %; Mean Corpuscular HGB Conc 29.9 g/dL (31.6-35.5); Mean Corpuscular Volume 90.4 fL (83.0-100.0); Mean Platelet Volume 10.3 fL (9.4-12.4); Monocytes # 1.4 K/mcL (0.0-1.3); Monocytes % 3.9 %; Neutrophils # 32.3 K/mcL (1.6-8.9); Platelet Count 372 K/mcL (140-400); Red Blood Count 3.66 M/mcL (3.82-4.97); Red Cell Distribution Width 15.9 % (11.5-14.5); Segmented Neutrophils % 90.2 %
[2021-10-13 07:33] LABS: Lymphocytes # 1.5 K/mcL (0.6-4.6); White Blood Count 35.8 K/mcL (4.3-11.1)
[2021-10-13 07:52] LABS: BUN/Creatinine Ratio 16 (6-26); Blood Urea Nitrogen 12 mg/dL (8-23); Calcium 7.4 mg/dL (8.6-10.3); Carbon Dioxide 27 mEq/L (23-29); Chloride 107 mEq/L (98-107); Glucose 114 mg/dL (70-105); Magnesium 1.7 mg/dL (1.6-2.6); Osmolality,Calculated 291 (280-300); Potassium 3.7 mEq/L (3.5-5.1); Sodium 140 mEq/L (136-145); eGFR For African Americans > 60 (> 60); eGFR For Non-African Americans > 60 (> 60)
[2021-10-13] MEDS: Gabapentin 300 MG CAPSULE PO SCH ×2 (08:16→16:14)
[2021-10-13] MEDS: *HR* OxyCODONE Immed Rel 5 MG TABLET PO PRN (08:33)
[2021-10-13] MEDS ORDERED: Isosorbide MONOnitrate (24 HR) 30 MG TAB.ER.24H PO SCH (09:00)
[2021-10-13] MEDS ORDERED: Cholecalciferol (D-3) 1,000 UNIT (25MCG) TABLET PO SCH (09:00)
[2021-10-13] MEDS ORDERED: lisinopriL 20 MG TABLET PO SCH (09:00)
[2021-10-13] MEDS ORDERED: Naloxone 0.4 MG/ML INJ IVP PRN (09:24)
[2021-10-13 11:07] LABS: Platelet Estimate Normal (Normal)
[2021-10-13] MEDS ORDERED: Vancomycin 1,250 MG/262.5 ML IV.SOLN IVPB SCH (14:00)
[2021-10-13] MEDS ORDERED: Isovue-370 500 ML BOTTLE IVP ONE ×2 (14:46→14:56)
[2021-10-13 14:58] VITALS: BP 99/45; PULSE 76; RESP 18; TEMP 98.6; O2SAT 97
[2021-10-13] MEDS ORDERED: Albumin 25% 25gram/100mL 25 GM/100 ML IV.SOLN IVPB ONE (18:52)
[2021-10-13] MEDS ORDERED: Norepinephrine 4 MG in 0.9 % Sodium Chloride 250 ML IVC SCH (19:15)
[2021-10-13] MEDS ORDERED: Hydrocortisone Sodium Succ 100 MG/2 ML VIAL IVP ONE (19:20)
[2021-10-13] MEDS ORDERED: 0.9 % Sodium Chloride 1,000 ML ONE (19:38)
[2021-10-14] MEDS ORDERED: Hydrocortisone Sodium Succ 100 MG/2 ML VIAL IVP ONE (18:57)
== END 2021-10-13 19:43 | disposition short-term general hospital (02) ==
LOC: INPPIK 13:53 → EMEROOPIK 13:53 → INPPIK 18:05
PROVIDERS: ADMIT Internal Medicine; ATTEND Internal Medicine